=== PATIENT | female | born 2000 | race Native Hawaiian/Other Pacific Islander ===

== ENCOUNTER 2022-06-19 19:59 | Emergency (ER) | payer OTHER ==
[~2022-06-19] VITALS: Ht 162.6 cm; Wt 61.2 kg
[2022-06-19 20:05] VITALS: BP 130/86; TEMP 98.7
[2022-06-19 21:08] LABS: PLATELET COUNT 266 K/uL (152-353)
[2022-06-19 21:32] LABS: POTASSIUM 3.5 mmol/L (3.6-5.2)
== END 2022-06-19 21:45 | disposition home or self-care (01) ==
LOC: ED 19:59
PROVIDERS: Emergency Medicine
DX: B34.9 Viral infection, unspecified (principal); K92.0 Hematemesis
CPT/HCPCS: 36415; 80048; 85027; 99283

== ENCOUNTER 2022-07-10 13:27 | Outpatient (CLI) | payer OTHER | END 2022-07-10 21:59 | LOC: LABW 13:27 | PROVIDERS: ATTEND Family Medicine | DX: N92.6 Irregular menstruation, unspecified (principal) | CPT/HCPCS: 36415; 84702 ==

== ENCOUNTER 2022-09-04 20:17 | Emergency (ER) | payer OTHER ==
[~2022-09-04] VITALS: Ht 162.6 cm; Wt 56.7 kg
[2022-09-04 22:35] VITALS: BP 119/82; TEMP 98.5
== END 2022-09-04 22:35 | disposition home or self-care (01) ==
LOC: ED 20:17
DX: S69.92XA Unspecified injury of left wrist, hand and finger(s), initial encounter (principal); M79.642 Pain in left hand; X58.XXXA Exposure to other specified factors, initial encounter; F17.210 Nicotine dependence, cigarettes, uncomplicated
CPT/HCPCS: 99282